=== PATIENT | female | born 1985 | race Native Hawaiian/Other Pacific Islander ===

== ENCOUNTER 2019-04-05 01:51 | Emergency (ER) | payer MEDICAID ==
--- NOTE | 2019-04-05 02:00 | C.PDOC ---
Time Seen by Provider: 04/05/19 02:00 Chief Complaint (Nursing): Shortness Of Breath Disposition - Disposition
[2019-04-05] MEDS ORDERED: Albuterol 0.083% Inhal Sol (2.5 mg/3 mL) UD ONE (02:04)
[2019-04-05] MEDS ORDERED: Albuterol-Ipratrop 3 mg / 0.5 (3 ml) UD INH STA ×2 (02:11→02:14)
[2019-04-05] MEDS ORDERED: Albuterol-Ipratrop 3 mg / 0.5 (3 ml) UD ONE (02:55)
--- NOTE | 2019-04-05 03:53 | C.PDOC ---
History Of Present Illness 33-year-old female presents to the emergency department with complaints of having persistent cough for a few weeks. Patient states that shes been trying to get to her doctor but has not been able to recently. Patient states this tonight she has been wheezing, but had never been diagnosed with asthma. Patient denies fever. Time Seen by Provider: 04/05/19 02:00 Chief Complaint (Nursing): Shortness Of Breath History Per: Patient History/Exam Limitations: no limitations Onset/Duration Of Symptoms: Other (weeks) Current Symptoms Are (Timing): Still Present Associated Symptoms: Other (cough, wheezing). denies: Fever Past Medical History Reviewed: Historical Data, Nursing Documentation, Vital Signs Vital Signs: Last Vital Signs Temp 98.7 F 04/05/19 01:59 Pulse 103 H 04/05/19 01:59 Resp 24 04/05/19 02:00 BP 143/90 04/05/19 01:59 Pulse Ox 95 04/05/19 02:00 Primary Care Provider: FAMILY PROVIDER,NO - Medical History PMH: No Chronic Diseases Surgical History: No Surg Hx Family History: States: No Known Family Hx - Social History Hx Alcohol Use: Yes Hx Substance Use: Yes - Immunization History Hx Tetanus Toxoid Vaccination: Yes Hx Influenza Vaccination: No Hx Pneumococcal Vaccination: No Review Of Systems Constitutional: Negative for: Fever, Chills, Weakness ENT: Negative for: Ear Pain, Nose Discharge, Nose Congestion, Throat Pain Cardiovascular: Negative for: Chest Pain Respiratory: Positive for: Cough, Wheezing. Negative for: Shortness of Breath Gastrointestinal: Negative for: Nausea, Vomiting, Diarrhea, Constipation Genitourinary: Negative for: Frequency, Hematuria Skin: Negative for: Rash Neurological: Negative for: Weakness, Numbness Physical Exam - Physical Exam Additional Physical Exam Comments: General: Well, non-toxic, NAD, comfortable. Skin: normal, warm, no rash Head: Normocephalic, Atraumatic Eyes: Normal Inspection (no scleral icterus), PERRL, EOMI Ears: Normal (no drainage) Nose: normal Throat: Normal (no swelling or injection), No Exudate, Other (Airway patent) Mucosa moist Neck: supple, normal ROM Chest: Symmetrical Heart: Rhythm Regular, No Murmur Respiratory: No accessory muscle use, other (Normal inspiratory effort). Wheezing bilaterally. Abdomen: Soft, Non-distended Back: Ambulating with steady upright gait Extremities: Atraumatic, Normal ROM Radial pulses 2+ Neuro: Oriented x3, Cranial nerves grossly intact ED Course And Treatment O2 Sat by Pulse Oximetry: 95 (RA) Pulse Ox Interpretation: Normal Progress Note: patient reports improvement of chest tightness and discomfort. lungs sounds have improved, though she still has a wheeze bilaterally, she is moving air well. she is speaking in full sentences and does not appear to be using accessory muscles. She agrees to feeling well enough for discharge. Medical Decision Making Medical Decision Making: Plan: CXR Albuterol 3ml INH Prednisone 60mg PO Disposition Counseled Patient/Family Regarding: Diagnosis, Need For Followup, Rx Given - Disposition Disposition: HOME/ ROUTINE Disposition Time: 04:23 Condition: IMPROVED Prescriptions: Albuterol HFA [Ventolin HFA 90 mcg/actuation (8 g)] 2 puff IH [id number] #1 inhaler Prednisone [Deltasone] 40 mg PO DAILY #6 tablet Instructions: Wheezing Forms: [facility] ([place]ian), General Discharge Instructions - Clinical Impression Clinical Impression: Wheezing on auscultation - PA / MEDIA COORDINATOR / Resident Statement MD/DO has reviewed & agrees with the documentation as recorded. - Scribe Statement The provider has reviewed the documentation as recorded by the Scribe (Oz Burks) All medical record entries made by the Scribe were at my direction and personally dictated by me. I have reviewed the chart and agree that the record accurately reflects my personal performance of the history, physical exam, medical decision making, and the department course for this patient. I have also personally directed, reviewed, and agree with the discharge instructions and disposition.
[2019-04-05 04:46] VITALS: BP 130/80; PULSE 90; RESP 18; TEMP 98.4
[2019-04-05 05:56] VITALS: O2SAT 95
--- NOTE | 2019-04-05 15:18 | RAD ---
Date of service: 04/05/2019 HISTORY: Pneumonia COMPARISON: No prior. TECHNIQUE: Chest PA and lateral views FINDINGS: LUNGS: No active pulmonary disease. PLEURA: No significant pleural effusion identified. No pneumothorax apparent. CARDIOVASCULAR: No aortic atherosclerotic calcification present. Normal cardiac size. No pulmonary vascular congestion. OSSEOUS STRUCTURES: No significant abnormalities. VISUALIZED UPPER ABDOMEN: Normal. OTHER FINDINGS: None. IMPRESSION: No active disease.
== END 2019-04-05 04:46 | disposition home or self-care (01) ==
LOC: C.ER 01:51
DX: R06.2 Wheezing (principal)